=== PATIENT | male | born 1945 | race Caucasian/White ===

== ENCOUNTER 2021-01-29 08:58 | Day surgery (SDC) | payer MEDICARE ==
[2021-01-22 11:45] LABS: BASOPHILS % (AUTO) 0.5 % (0-1); EOSINOPHILS # (AUTO) 0.2 X10'3 (0-0.9); EOSINOPHILS % (AUTO) 2.4 % (0-6); LYMPHOCYTES # (AUTO) 1.7 X10'3 (1.1-4.8); LYMPHOCYTES % (AUTO) 23.1 % (21-51); MEAN CORPUSCULAR HEMOGLOBIN 32.9 PG (27.0-31.0); MEAN CORPUSCULAR VOLUME 96.9 FL (78-98); MEAN PLATELET VOLUME 8.6 FL (7.4-10.4); MONOCYTES # (AUTO) 0.5 X10'3 (0-0.9); MONOCYTES % (AUTO) 7.5 % (2-12); NEUTROPHILS # (AUTO) 4.8 X10'3 (1.8-7.7); NEUTROPHILS % (AUTO) 66.5 % (42-75); PRE OP HEMATOCRIT 47.6 % (42.0-52.0); PRE OP HEMOGLOBIN 16.2 g/dL (14.0-17.9); PRE OP PLATELET COUNT 213 X10'3 (140-440); RED BLOOD COUNT 4.91 X10'6 (4.70-6.10); RED CELL DISTRIBUTION WIDTH 13.8 % (11.5-14.5)
[2021-01-22 12:00] LABS: ALBUMIN 4.1 G/DL (3.4-5.0); ALBUMIN/GLOBULIN RATIO 1.1 (1.1-1.5); ALKALINE PHOSPHATASE 73 IU/L (46-116); BLOOD UREA NITROGEN 16 MG/DL (7-18); BUN/CREATININE RATIO 14.4 (5.4-32.0); CALCIUM 8.8 MG/DL (8.5-10.1); CHLORIDE 106 MMOL/L (99-107); CREATININE 1.11 MG/DL (0.60-1.10); PRE OP ALT 35 U/L (30-65); PRE OP ANION GAP 9 (8-16); PRE OP AST 23 U/L (10-37); PRE OP BILIRUB, TOTAL 0.5 MG/DL (0.0-1.0); PRE OP GLUCOSE 88 MG/DL (70-104); PRE OP POTASSIUM 4.1 MMOL/L (3.4-5.1); PRE OP SODIUM 141 MMOL/L (135-145); TOTAL CARBON DIOXIDE 26.1 MMOL/L (24-32); TOTAL PROTEIN 7.8 G/DL (6.4-8.2); eGFR 64 ML/MIN
[2021-01-29] VITALS (14 sets, daily range): BP systolic 96–167; BP diastolic 64–82
[~2021-01-29] VITALS: Ht 170.2 cm; Wt 60.0 kg
[~2021-01-29 08:58] MED LIST: ALBU8HFA PO; ASPI-1264 PO; EZET10TA6 PO; FLUT1BLS4 INH; MULT-1085 PO; SIMV40TA PO; SUMA25TA35 PO; albuterol 2.5 MG/3 ML nebule NEB ONE; cefazolin/dext.iso 2gm/100ml IV ONE; famotidine 20mg tablet PO ONE; meperidine/PF 25mg/ml syringe IV PRN; morphine 2 MG/ML inj. syringe IV PRN; morphine 4 MG/ML inj SYRINge IV PRN; ondansetron/PF 4mg/2ml inj IV PRN; proCHLORperazine 10 MG/2 ml inj IV PRN; ringers solution, lacted 1,000 ML IV SCH
[2021-01-29] MEDS ORDERED: BUPIVAcaine/PF 2.5 mg/ml (0.25%) 30ml vial ONE (09:42)
[2021-01-29] MEDS ORDERED: LIDOcaine 1% 30ml preserv. free vial ONE (09:42)
[2021-01-29] MEDS ORDERED: albuterol 2.5 MG/3 ML nebule NEB STA (10:42)
[2021-01-29] MEDS ORDERED: LIDOcaine 2% (20mg/ml) 5ml vial ONE (12:09)
[2021-01-29] MEDS ORDERED: propofol inj 20 ML IV ONE (12:09)
[2021-01-29] MEDS ORDERED: fentaNYL/PF 50MCG/1 ML 2ML syringe ONE (12:10)
[2021-01-29] MEDS ORDERED: midazolam 1 mg/ML 2ml injection ONE (12:10)
[2021-01-29] MEDS ORDERED: BUPIVACAINE liposomal/PF 13.3 MG/ML vial IM ONE (12:44)
[2021-01-29] MEDS ORDERED: BUPIVAcaine/PF 2.5mg/ml (0.25%) 10ml vial ONE (12:44)
[2021-01-29] MEDS ORDERED: rocuronium 10mg/ml inj IV ONE (12:46)
[2021-01-29] MEDS ORDERED: meperidine/PF 25mg/ml syringe ONE (13:28)
--- NOTE | 2021-01-29 15:00 | NUR ---
ADMITTED TO PACU FROM OR ACCOMPANIED BY ANESTHESIA. INTIAL PHYSICAL ASSESSMENT DONE AND RECORDED. REPORT RECEIVED FROM ANESTHESIA.
[2021-01-29] MEDS ORDERED: oxyCODONE/APAP 5-325mg tablet PO PRN ×2 (15:05)
--- NOTE | 2021-01-29 17:30 | NUR ---
DISCHARGE CRITERIA MET, DISCHARGE INSTRUCTIONS GIVEN, DEMONSTRATES VERBAL UNDERSTANDING. DISCHARGED HOME IN GOOD CONDITION.
== END 2021-01-29 17:30 | disposition home or self-care (01) ==
LOC: PAS 08:58
PROVIDERS: ATTEND Surgery
DX: K43.0 Incisional hernia with obstruction, without gangrene (principal); K66.0 Peritoneal adhesions (postprocedural) (postinfection); I25.10 Atherosclerotic heart disease of native coronary artery without angina pectoris; E78.5 Hyperlipidemia, unspecified; G89.29 Other chronic pain; J43.9 Emphysema, unspecified; G47.30 Sleep apnea, unspecified; I25.2 Old myocardial infarction; G43.909 Migraine, unspecified, not intractable, without status migrainosus; K21.9 Gastro-esophageal reflux disease without esophagitis; M19.90 Unspecified osteoarthritis, unspecified site; F17.210 Nicotine dependence, cigarettes, uncomplicated; Z95.5 Presence of coronary angioplasty implant and graft; Z79.899 Other long term (current) drug therapy; Z79.82 Long term (current) use of aspirin; Z98.41 Cataract extraction status, right eye; Z98.42 Cataract extraction status, left eye; Z90.49 Acquired absence of other specified parts of digestive tract; Z98.890 Other specified postprocedural states; Z72.89 Other problems related to lifestyle
CPT/HCPCS: 36415; 49657; 64488; 71046; 80053; 82948; 85025; 93005; 94640; 94664; 94760; C1781; C9290; J2001; J2175; J2250; J2704; J3010; J3490; A4215; A4618; J7120